=== PATIENT | male | born 1995 | race Caucasian/White ===

== ENCOUNTER 2016-11-01 23:16 | Emergency (ER) | payer SELFPAY ==
[~2016-11-01] VITALS: Ht 165.1 cm; Wt 95.3 kg
[2016-11-01 23:30] VITALS: BP 122/67
--- NOTE | 2016-11-01 23:35 | NUR ---
PATIENT AMBULATED TO ER BED 7.
--- NOTE | 2016-11-01 23:50 | NUR ---
Patient being evaluated by DR. GOLDBERG at bedside.
--- NOTE | 2016-11-02 00:07 | NUR ---
21Y/M PATIENT PRESENTS TO ED WITH C/O RT. LITTLE FINGER PAIN X 3 DAYS . PT STATES PAIN STATRTED 3 DAYS AGO, NO TRAUMA NOR INJURY.; SKIN IS PINK/WARM/DRY; AAOX4 WITH EVEN AND STEADY GAIT; LUNGS CLEAR BL; HR EVEN AND REGULAR; PT DENIES ANY FEVER, CP, SOB, OR COUGH AT THIS TIME;RT.LITTLE FINGER PAIN, CAP REFILL < 3 SECS, PATIENT STATES PAIN OF 0/10 AT THIS TIME; VSS; PATIENT POSITIONED FOR COMFORT; HOB ELEVATED; BEDRAILS UP X2; BED DOWN. ER MD MADE AWARE OF PT STATUS.
--- NOTE | 2016-11-02 00:44 | NUR ---
Patient discharged with v/s stable. Written and verbal after care instructions given and explained. Patient alert, oriented and verbalized understanding of instructions. Ambulatory with steady gait. All questions addressed prior to discharge. ID band removed. Patient advised to follow up with PMD. Rx of MOTRIN 600 MG, KEFLEX 500 MG given. Patient educated on indication of medication including possible reaction and side effects. Opportunity to ask questions provided and answered.
[2016-11-02 00:48] VITALS: BP 125/70
== END 2016-11-02 00:44 | disposition home or self-care (01) ==
LOC: MED 23:16
DX: S61.246A Puncture wound with foreign body of right little finger without damage to nail, initial encounter (principal); F17.200 Nicotine dependence, unspecified, uncomplicated; W45.0XXA Nail entering through skin, initial encounter; W22.8XXA Striking against or struck by other objects, initial encounter; Y93.89 Activity, other specified; Y92.69 Other specified industrial and construction area as the place of occurrence of the external cause; Y99.0 Civilian activity done for income or pay
CPT/HCPCS: 73130; 90471; 90715; 99284